=== PATIENT | male | born 1995 | race Two or more races ===

== ENCOUNTER 2019-08-31 13:49 | Outpatient (CLI) | payer OTHER | END 2019-08-31 13:58 | disposition home or self-care (01) | LOC: RAD 13:49 | PROVIDERS: ATTEND Physical Medicine & Rehabilitation | DX: S93.421A Sprain of deltoid ligament of right ankle, initial encounter (principal); M25.572 Pain in left ankle and joints of left foot; M25.571 Pain in right ankle and joints of right foot | CPT/HCPCS: 73721 ==